=== PATIENT | female | born 1960 | race Caucasian/White ===

== ENCOUNTER 2017-06-21 19:09 | Emergency (ER) | payer BC ==
[~2017-06-21] VITALS: Ht 162.6 cm; Wt 54.4 kg
[~2017-06-21 19:09] MED LIST: CORTISPORI7.5 ML/BO1 OP; DARVOCET-N 1001 EACH PO; FLEXERIL10 MG PO; LORTAB 5/500 501 TAB PO; MEDROL 4MG. DOSE4 MG PO; NAPROSYN 500MG500 MG PO; NOMEDS *; PREDNISONE 20MG20 MG PO; SEPTRA DS 800 M1 TAB PO; ULTRAM50 MG PO
--- OUTSIDE RECORDS SUMMARY | 2017-06-21 19:32 | External Medical Summary Rpt ---
Demographics Preferred Language Divehi Marital Status Unknown Mandaeism Affiliation Unknown Race Unknown Ethnic Group Unknown Author Author ERLIN Address Unknown Phone Immunization Unable to retrieve immunization data due to connection failure with Immunization Registry. Please try again later.
--- OUTSIDE RECORDS SUMMARY | 2017-06-21 19:32 | External Medical Summary Rpt ---
Author Author ERLIN Lozano, [employer] Organization [employer] Address Unknown Phone Unavailable Results XR FOOT LEFT AP LATERAL AND OBLIQUE STANDING Observa Value Referen Units Interpr Notes Date etation Range XR FOOT No No No No Jun 10 LEFT informa informa informa informa 2014 AP tion in tion in tion in tion in 5:08 PM LATERAL source source source source AND data data data data OBLIQUE STANDIN G Jun 10, 2015 05:09:2 2 PM\.br\ \.br\Cl inical: evaluat e bunion\ .br\\.b r\FINDI NGS: There is mild hallux valgus of the great toe. There are no\.br\ high-gr jeramie degener ative\. br\clemons ges of the first metatar jason phalang eal joint. There are no erosion s.\.br\ \.br\\. br\IMPR ESSION: Mild hallux valgus great toe. XR FOOT RIGHT AP LATERAL AND OBLIQUE STANDING Observa Value Referen Units Interpr Notes Date ce etation Range 06/10/20 No No No No Jun 10\.br\ informa informa informa informa 2014 \.br\Th tion in tion in tion in tion in 5:08 PM ree-vie source source source source w data data data data standin g right foot series: \.br\\. br\HIST ORY: Pain. Rule out bunion. No prior films.\ .br\\.b r\Three -view standin g study of the right foot demonst rates no focal\. br\disp laced or healing fractur e\.br\d eformit y. No signifi cant process . Minimal soft tissue swellin g involve s\.br\t he first MTP joint.\ .br\No signifi cant hallux valgus deformi ty of the great toe.\.b r\\.br\ IMPRESS ION:\.b r\\.br\ Focal soft tissue swellin g involve s the first MTP joint. No evidenc e of\.br\ fractur e. No\.br\ signifi cant hallux valgus deformi ty.
--- OUTSIDE RECORDS SUMMARY | 2017-06-21 19:32 | External Medical Summary Rpt ---
Author Author [employer] Organization [employer] Address Unknown Phone Unavailable Purpose Continuity of Care Document - through 2016
--- OUTSIDE RECORDS SUMMARY | 2017-06-21 19:32 | External Medical Summary Rpt ---
Author Author ERLIN Address Unknown Phone [email or web address] Purpose Continuity of Care Document - 06-10-2015 through 2016
--- OUTSIDE RECORDS SUMMARY | 2017-06-21 19:32 | External Medical Summary Rpt ---
Demographics Preferred Language Maori Marital Status Unknown Christianity Affiliation Unknown Race Unknown Ethnic Group Unknown Author Author ERLIN Address Unknown Phone Immunization Unable to retrieve immunization data due to connection failure with Immunization Registry. Please try again later.
--- OUTSIDE RECORDS SUMMARY | 2017-06-21 19:32 | External Medical Summary Rpt ---
Author Author ERLIN Address Unknown Phone [email or web address] Purpose Continuity of Care Document - 06-10-2015 through 2016
[2017-06-21] MEDS ORDERED: KEFLEX 500MG.500 MG PO (20:40)
[2017-06-21] MEDS ORDERED: SEPTRA DS 800 M1 TAB PO (20:40)
[2017-06-21] MEDS ORDERED: PREDNISONE 20MG20 MG PO (20:40)
--- NOTE | 2017-06-21 20:40 | Emergency Room Report ---
History of Present Illness Time Seen by [id number] Presenting Problem in Triage Pt arrived:Walked Presenting Problem:CHRONIC DERMATITIS, ACUTE FLARE UP Onset of symptoms date/time:/ or onset unknown for:MEDICAL HX UNKNOWN Treatment Prior to Arrival: REPAIR MANAGER Provided by: Sepsis Risk Assessment: Temp: 97.9 B/P: 127/82 MAP: 104 Pulse: 98 Resp: 16 Recent fever? N Clinical Suspician of Infection? N Mental Status: 1 - Regular (Normal Baseline) Sepsis Risk:Low Sepsis Risk Have you (or family members/close friends) recently traveled outside the [place]? N If Yes, where/when: Have you had exposure to infectious disease within the past month? TB? Other? Specify: Source patient, RN notes reviewed, family, old records Exam Limitations no limitations Comment pt with rash to hands which is painful and she has had before with last flare 6 yrs ago Cardiac Chest Pain Chest pain indicative of cardiac No Timing/Duration this evening Severity moderate ALLERGIES Coded Allergies: codeine (Mild, 06/21/17) Uncoded Allergies: IV DYE (Mild, 06/21/17) Home Medications Reported Medications No Home Medications (NO HOME MEDICATIONS) 1 X * ONCE History Medical History General CAD? No Angina: No NC: No Hypertension? No Hyperlipidemia? No CHF? No DVT? No PE? No COPD? No Asthma? No Anemia? No GERD? No Gastric ulcers? No GI Bleed? No Hernia? No Thyroid Problems? No Hypothyroidism? No CVA? No Seizures? No Diabetes? No Insulin Dependent: No Insulin Pump: No Home FSBS? No Renal Insuffiency? No End Stage Renal Disease? No UTI? No Stones? No BPH? No GB Disease: No Nephritic Syndrome? No Asplenia? No Hepatitis? No Sickle Cell Disease? No Arthritis? No Migraines? No Cataracts? No Glaucoma? No MRSA? No HIV? No TB? No Anxiety? No Depression? No Cancer? No More? No Immunization Hx Ped.Immunizations UTD Yes DT/Tetanus 5-10 YRS Flu NEVER Pneumonia NEVER Surgical Hx Previous Surgery?Y X2 RT. 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 Respiratory denies cough, denies shortness of breath, denies wheezing Cardiovascular denies chest pain, denies palpitations, denies syncope Gastrointestinal denies abdominal pain, denies diarrhea, denies vomiting Genitourinary denies: dysuria, frequency, hesitancy, hematuria. Musculoskeletal denies back pain, denies joint pain, denies joint swelling, denies neck pain Skin see HPI, rash Psychiatric/Neurological denies headache, denies seizure Physical Exam Vital Signs Vital Signs Date Time Temp Pulse Resp B/P Pulse O2 O2 Flow FiO2 Ox Delivery Rate 06/21 2026 98 16 127/82 96 06/21 1918 97.9 114 18 132/90 98 - WBC >12,000 or <4,000 or 10% bands? 2 or more SIRS Criteria Met? B/P:127/82 MAP:104 Creatinine >2.0? UA output<0.5ml/kg/hr for 2 hrs? Platelet count >100,000? Lactate >2.0mmol/1? INR >1.2 or PTT > than 60 sec? Evidence of Organ Dysfunction? Provider documented clinical suspician of infection? N Sepsis Criteria Count: 1 Sepsis Risk: Low Sepsis Risk General Appearance no apparent distress Eye Exam - bilateral eye PERRL, bilateral eye EOMI Ear, Nose, Throat normal ENT inspection Neck supple Respiratory Status No: respiratory distress. Cardiovascular regular rate/rhythm Peripheral Pulses Pulses normal Yes Extremities normal inspection Strength 4 Upper Ext (L), 4 Upper Ext (R), 4 Lower Ext (L), 4 Lower Ext (R) Neurologic alert, physical integration practitioner II-XII nml as tested, no motor/sensory deficits Reflexes Reflexes normal No Mental status normal mood/affect Skin rash, rash consistent with dyshidrosis Medical Decision Making LABS/Meds/Orders Pt receiving controlled substance in ED? No Departure Departure Time of Disposition 2035 Disposition DC Home or Self Care(routine) Clinical Impression Primary Impression: Dyshidrotic hand dermatitis Condition STABLE Referrals NO REFERRAL (Family) Patient Instructions DI for Rash Additional Instructions use meds and see pcp of choice or director child abuse therapy Discharge Counseling Counseled pt/family regarding diagnosis, medications/RX, follow up needs Prescriptions Current Visit Scripts CEPHALEXIN (Keflex 500MG Capsule) 500 MG PO Q8H #30 CAP SULFAMETHOXAZOLE/TRIMETHOPRIM (Sulfamethoxazole-Tmp Ds Tablet) 1 TAB PO BID #20 TAB Prednisone (Prednisone 20MG) 20 MG PO BID #12 TAB ED Critical Care Critical Care No at 2040
--- NOTE | 2017-06-21 20:40 | Emergency Room Report ---
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 N Clinical Suspician of Infection? N Mental Status: 1 - Regular (Normal Baseline) Sepsis Risk:Low Sepsis Risk Have you (or family members/close friends) recently traveled outside the [place]? N If Yes, where/when: Have you had exposure to infectious disease within the past month? TB? Other? Specify: Source patient, RN notes reviewed, family, old records Exam Limitations no limitations Comment pt with rash to hands which is painful and she has had before with last flare 6 yrs ago Cardiac Chest Pain Chest pain indicative of cardiac No Timing/Duration this evening Severity moderate ALLERGIES Coded Allergies: codeine (Mild, 06/21/17) Uncoded Allergies: IV DYE (Mild, 06/21/17) Home Medications Reported Medications No Home Medications (NO HOME MEDICATIONS) 1 X * ONCE History Medical History General CAD? No Angina: No HI: No Hypertension? No Hyperlipidemia? No CHF? No DVT? No PE? No COPD? No Asthma? No Anemia? No GERD? No Gastric ulcers? No GI Bleed? No Hernia? No Thyroid Problems? No Hypothyroidism? No CVA? No Seizures? No Diabetes? No Insulin Dependent: No Insulin Pump: No Home FSBS? No Renal Insuffiency? No End Stage Renal Disease? No UTI? No Stones? No BPH? No GB Disease: No Nephritic Syndrome? No Asplenia? No Hepatitis? No Sickle Cell Disease? No Arthritis? No Migraines? No Cataracts? No Glaucoma? No MRSA? No HIV? No TB? No Anxiety? No Depression? No Cancer? No More? No Immunization Hx Ped.Immunizations UTD Yes DT/Tetanus 5-10 YRS Flu NEVER Pneumonia NEVER Surgical Hx Previous Surgery?Y X2 RT. 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 Respiratory denies cough, denies shortness of breath, denies wheezing Cardiovascular denies chest pain, denies palpitations, denies syncope Gastrointestinal denies abdominal pain, denies diarrhea, denies vomiting Genitourinary denies: dysuria, frequency, hesitancy, hematuria. Musculoskeletal denies back pain, denies joint pain, denies joint swelling, denies neck pain Skin see HPI, rash Psychiatric/Neurological denies headache, denies seizure Physical Exam Vital Signs Vital Signs Date Time Temp Pulse Resp B/P Pulse O2 O2 Flow FiO2 Ox Delivery Rate 06/21 2026 98 16 127/82 96 06/21 1918 97.9 114 18 132/90 98 - WBC >12,000 or <4,000 or 10% bands? 2 or more SIRS Criteria Met? B/P:127/82 MAP:104 Creatinine >2.0? UA output<0.5ml/kg/hr for 2 hrs? Platelet count >100,000? Lactate >2.0mmol/1? INR >1.2 or PTT > than 60 sec? Evidence of Organ Dysfunction? Provider documented clinical suspician of infection? N Sepsis Criteria Count: 1 Sepsis Risk: Low Sepsis Risk General Appearance no apparent distress Eye Exam - bilateral eye PERRL, bilateral eye EOMI Ear, Nose, Throat normal ENT inspection Neck supple Respiratory Status No: respiratory distress. Cardiovascular regular rate/rhythm Peripheral Pulses Pulses normal Yes Extremities normal inspection Strength 4 Upper Ext (L), 4 Upper Ext (R), 4 Lower Ext (L), 4 Lower Ext (R) Neurologic alert, mechanical engineering technologist II-XII nml as tested, no motor/sensory deficits Reflexes Reflexes normal No Mental status normal mood/affect Skin rash, rash consistent with dyshidrosis Medical Decision Making LABS/Meds/Orders Pt receiving controlled substance in ED? No Departure Departure Time of Disposition 2035 Disposition DC Home or Self Care(routine) Clinical Impression Primary Impression: Dyshidrotic hand dermatitis Condition STABLE Referrals NO REFERRAL (Family) Patient Instructions DI for Rash Additional Instructions use meds and see pcp of choice or border measurer and cutter Discharge Counseling Counseled pt/family regarding diagnosis, medications/RX, follow up needs Prescriptions Current Visit Scripts CEPHALEXIN (Keflex 500MG Capsule) 500 MG PO Q8H #30 CAP SULFAMETHOXAZOLE/TRIMETHOPRIM (Sulfamethoxazole-Tmp Ds Tablet) 1 TAB PO BID #20 TAB Prednisone (Prednisone 20MG) 20 MG PO BID #12 TAB ED Critical Care Critical Care No at 2040
[2017-06-21 20:50] VITALS: BP 127/82
== END 2017-06-21 20:51 | disposition home or self-care (01) ==
LOC: ER 19:09
DX: L30.1 Dyshidrosis [pompholyx] (principal)